=== PATIENT | male | born 1990 | race Caucasian/White ===

== ENCOUNTER 2016-12-30 17:47 | Emergency (ER) | payer OTHER ==
[2016-12-30] MEDS ORDERED: CYCLOBENZAPRINE 10 MG TABLET PO STA (18:25)
[2016-12-30] MEDS ORDERED: HYDROcod/ACET 5/325 Prepack 6 PO STA (18:25)
[2016-12-30] MEDS ORDERED: HYDROcod/ACET 5/325 Prepack 6 PO ONE (18:27)
[2016-12-30] MEDS ORDERED: CYCLOBENZAPRINE 10 MG TABLET PO ONE (18:28)
== END 2016-12-30 18:37 | disposition home or self-care (01) ==
DX: S39.012A Strain of muscle, fascia and tendon of lower back, initial encounter (principal); X50.0XXA Overexertion from strenuous movement or load, initial encounter; F17.200 Nicotine dependence, unspecified, uncomplicated; R03.0 Elevated blood-pressure reading, without diagnosis of hypertension
CPT/HCPCS: 99283; A9270

== ENCOUNTER 2017-04-25 09:15 | Emergency (ER) | payer OTHER ==
[2017-04-25 09:35] LABS: BILIRUBIN,URINE NEGATIVE (NEGATIVE); PH,URINE 5.5 PH (5.0-7.5)
[2017-04-25 09:36] LABS: UA CHARGE (STRIP ONLY) YES; UR CULTURE IF IND NOT INDICATED
--- NOTE | 2017-04-25 09:45 | ED Physician Documentation ---
PD HPI ABD PAIN - Stated complaint Stated Complaint: SIDE PX - Chief complaint Chief Complaint: Abd Pain - History obtained from History obtained from: Patient - History of Present Illness Timing - onset: How many days ago (2) Timing - duration: Days (2) Timing - details: Gradual onset, Still present Quality: Sharp, Pain Location: LLQ Radiation: Left flank Improved by: Laying still Worsened by: Moving, Position, Palpation, Other (urination.) Associated symptoms: No: Fever, Nausea, Vomiting, Hematemesis, Diarrhea, Constipation Similar symptoms before: Diagnosis (UTI) Recently seen: Not recently seen - Additional information Additional information: 27 y/o male previously well has developed left sided abdominal pain about 3 days ago and this is slowly progressing and worse today. He feels some pain while urinating in the Left side and this resolves. He has pain with movement and palpation and the pain does not resolve with rest. He has not had diarrhea or constipation. He did do some work with moving prior to onset of symptoms. Review of Systems Constitutional: reports: Fatigue. denies: Fever, Chills Eyes: denies: Decreased vision Ears: denies: Ear pain Nose: denies: Congestion Throat: denies: Sore throat Cardiac: denies: Chest pain / pressure, Palpitations Respiratory: denies: Dyspnea, Cough GI: reports: Abdominal Pain. denies: Nausea, Vomiting, Constipation, Diarrhea, Hematemesis : reports: Dysuria. denies: Frequency Skin: denies: Rash, Lesions Musculoskeletal: denies: Neck pain, Back pain, Extremity pain Neurologic: denies: Generalized weakness, Focal weakness, Numbness PD PAST MEDICAL HISTORY - Past Surgical History Past Surgical History: No General: Appendectomy - Present Medications Home Medications: Ambulatory Orders Medication Instructions Recorded Confirmed Ciprofloxacin HCl [Cipro] 500 mg PO BID #14 tablet 04/25/17 HYDROcod/ACETAM 5/325 [Toxey 5/325] 1 - 2 ea PO Q6H PRN #15 tablet 04/25/17 Metronidazole [Flagyl] 500 mg PO BID #14 tablet 04/25/17 - Allergies Allergies/Adverse Reactions: Allergies Allergy/AdvReac Type Severity Reaction Status Date / Time No Known Drug Allergies Allergy Verified 04/25/17 09:21 - Social History Does the pt smoke?: Yes Smoking Status: Current every day smoker Does the pt drink ETOH?: No Does the pt have substance abuse?: No - Immunizations Immunizations are current?: Yes PD ED PE NORMAL - Vitals Vital signs reviewed: Yes (hypertensive ) - General General: Alert and oriented X 3, No acute distress, Well developed/nourished - HEENT HEENT: Atraumatic, PERRL, EOMI - Neck Neck: Supple, no meningeal sign, No bony TTP - Cardiac Cardiac: RRR, No murmur - Respiratory Respiratory: No respiratory distress, Clear bilaterally - Abdomen Abdomen: Soft, Other (There is left lower quadrant tenderness to palpation that extinquishes with time and this is not reproduced by the strain of sitting up. The pain is reproduced with repeat exam and there is no referred tenderness. ) - Back Back: No CVA TTP, No spinal TTP - Derm Derm: Normal color, Warm and dry, No rash - Extremities Extremities: No deformity, No edema - Neuro Neuro: Alert and oriented X 3, No motor deficit, No sensory deficit, Normal speech - Psych Psych: Normal mood, Normal affect Results - Vitals Vitals: Vital Signs - 24 hr 04/25/17 04/25/17 09:19 11:01 Temperature 36.6 C Heart Rate 75 71 Respiratory 18 18 Rate Blood Pressure 157/94 H 132/82 H O2 Saturation 100 95 Oxygen O2 Source Room air - Labs Labs: Laboratory Tests 04/25/17 04/25/17 04/25/17 09:20 09:51 09:51 WBC 8.6 RBC 4.84 Hgb 15.0 Hct 44.2 MCV 91.2 MCH 31.0 MCHC 34.0 RDW 12.6 Plt Count 235 MPV 7.7 Neut # 4.9 Lymph # 2.7 Ward # 0.8 Eos # 0.2 Baso # 0.0 Absolute Nucleated RBC 0.00 Nucleated RBCs 0.0 Sodium 139 Potassium 4.1 Chloride 108 Carbon Dioxide 22 Anion Gap 9.0 BUN 15 Creatinine 1.1 Estimated GFR (MDRD) 79 L Glucose 108 H Calcium 9.3 Total Bilirubin 0.5 AST 50 H ALT 94 H Alkaline Phosphatase 77 Total Protein 8.2 Albumin 4.5 Globulin 3.7 Albumin/Globulin Ratio 1.2 Lipase 34 Urine Color YELLOW Urine Clarity CLEAR Urine pH 5.5 Ur Specific [place] >=1.030 H Urine Protein NEGATIVE Urine Glucose (UA) NEGATIVE Urine Ketones NEGATIVE Urine Occult Blood NEGATIVE Urine Nitrite NEGATIVE Urine Bilirubin NEGATIVE Urine Urobilinogen 0.2 (NORMAL) Ur Leukocyte Esterase NEGATIVE Ur Microscopic Review NOT INDICATED Urine Culture Comments NOT INDICATED - Rads (name of study) CT ab/pel with Radiology: Prelim report reviewed (Impression: Mild diverticulosis with acute diverticulitis.), EMP read indepedently, See rad report PD MEDICAL DECISION MAKING - ED course Complexity details: reviewed old records, reviewed results, re-evaluated patient , considered differential, d/w patient, d/w family ED course: 27-year-old male with left-sided abdominal pain appears to have tenderness on examination and CT exam shows diverticulitisFlagyl and Cipro and he will have the next several days off from work. Departure - Departure Disposition: Home, Self Care Clinical Impression: Diverticulitis Qualifiers: Diverticulitis site: large intestine Diverticulitis bleeding: without bleeding Diverticulitis complication: without perforation or abscess Qualified Code(s): K57.32 - Diverticulitis of large intestine without perforation or abscess without bleeding Condition: Stable Instructions: ED Diverticulitis Follow-Up: SHAKIR SINGH [Primary Care Provider] - Prescriptions: Ciprofloxacin HCl [Cipro] 500 mg PO BID #14 tablet Metronidazole [Flagyl] 500 mg PO BID #14 tablet HYDROcod/ACETAM 5/325 [Toxey 5/325] 1 - 2 ea PO Q6H PRN #15 tablet PRN Reason: Pain Comments: Today in the Emergency Department your blood pressure was elevated. This can happen from the stress of the visit itself, from a current illness or circumstance or from uncontrolled hypertension. If you take blood pressure medications take your usual mediations, have your blood pressure re-checked in an appropriate setting and follow up any elevation with your primary care doctor.
[2017-04-25 10:03] LABS: BASOPHILS % (AUTO) 0.5 %; EOSINOPHILS # (AUTO) 0.2 10^3/uL (0.0-0.7); EOSINOPHILS % (AUTO) 2.5 %; HCT - HEMATOCRIT 44.2 % (42.0-52.0); LYMPHOCYTES # (AUTO) 2.7 10^3/uL (1.5-3.5); LYMPHOCYTES % (AUTO) 31.7 %; MEAN CORPUSCULAR VOLUME 91.2 fL (80.0-94.0); MEAN PLATELET VOLUME 7.7 fL (7.4-11.4); MONOCYTES # (AUTO) 0.8 10^3/uL (0.0-1.0); MONOCYTES % (AUTO) 8.8 %; NEUTROPHILS # (AUTO) 4.9 10^3/uL (1.5-6.6); NEUTROPHILS % (AUTO) 56.5 %; RED BLOOD COUNT 4.84 10^6/uL (4.70-6.10); RED CELL DISTRIBUTION WIDTH 12.6 % (12.0-15.0); UNCORRECTED WHITE BLOOD COUNT 8.6 x10^3/uL; WHITE BLOOD COUNT 8.6 x10^3/uL (4.8-10.8)
[2017-04-25 10:23] LABS: ALBUMIN/GLOBULIN RATIO 1.2 (1.0-2.2); BILIRUBIN,TOTAL 0.5 mg/dL (0.2-1.0); CALCIUM 9.3 mg/dL (8.5-10.3); CREATININE 1.1 mg/dL (0.6-1.2); POTASSIUM 4.1 mmol/L (3.5-5.0); TOTAL PROTEIN 8.2 g/dL (6.7-8.2)
[2017-04-25] MEDS ORDERED: IOPAMIDOL-300 100 ML VIAL IVP ONE (10:47)
[2017-04-25 11:02] VITALS: BP 132/82
--- NOTE | 2017-04-25 11:41 | CT Preliminary Report ---
Exam: CT Abdomen/Pelvis W/ IMPRESSION: Mild diverticulosis with acute diverticulitis. [facility] SITE ID: [id number]
--- NOTE | 2017-04-25 11:43 | CT Report ---
EXAM: CT ABDOMEN AND PELVIS EXAM DATE: 04/25/2017 10:50 AM. CLINICAL HISTORY: LLQ pain . COMPARISONS: 06/25/2016. TECHNIQUE: Routine helical CT imaging was performed through the abdomen and pelvis. IV contrast: 100 cc Isovue-300. Enteric contrast: No. Reconstructions: Coronal and sagittal. In accordance with CT protocol optimization, one or more of the following dose reduction techniques w ere utilized for this exam: automated exposure control, adjustment of mA and/or KV based on patient s ize, or use of iterative reconstructive technique. FINDINGS: Lung Bases: Small focus of atelectasis in left outer sulcus. Otherwise unremarkable. No effusion. Liver: Normal. No masses. Gallbladder/Bile Ducts: Unremarkable. Spleen: Normal. Pancreas: Normal. Adrenal Glands: Normal. Kidneys: Normal. No masses or hydronephrosis. Peritoneal Cavity/Bowel: Minimal colonic diverticulosis with localized hazy infiltration of fat adjac ent to the descending sigmoid junction representing acute diverticulitis. No fluid collection or absc ess formation at this time. Bowel loops otherwise unremarkable. Appendix surgically absent. No free f luid, free air, or lymphadenopathy. Pelvic Organs: Normal. The bladder and visualized pelvic organs are within normal limits. Vasculature: No aneurysms or other significant abnormality. Bones: No significant abnormality. Other: None. IMPRESSION: Mild diverticulosis with acute diverticulitis. [facility] Referring Provider Line: [phone] SITE ID: [id number]
== END 2017-04-25 11:57 | disposition home or self-care (01) ==
LOC: ED 09:15
DX: K57.32 Diverticulitis of large intestine without perforation or abscess without bleeding (principal); R03.0 Elevated blood-pressure reading, without diagnosis of hypertension; F17.200 Nicotine dependence, unspecified, uncomplicated
CPT/HCPCS: 36415; 74177; 80053; 81003; 83690; 85025; 99283; 99284; Q9967; 81001; 87086

== ENCOUNTER 2017-07-23 15:24 | Emergency (ER) | payer OTHER ==
[2017-07-23 15:47] VITALS: BP 133/86
[2017-07-23] MEDS ORDERED: DEXAMETHASONE 10 MG/ML VIAL PO STA (16:50)
--- NOTE | 2017-07-23 16:53 | ED Physician Documentation ---
PD HPI HEENT - Stated complaint Stated Complaint: LT EAR PX - Chief complaint Chief Complaint: Heent - History obtained from History obtained from: Patient - History of Present Illness Timing - onset: Last night Timing - duration: Days (1) Timing - details: Gradual onset, Still present Location: Left ear Improves: Medication Associated symptoms: Congestion, Rhinorrhea, Cough Similar symptoms before: Diagnosis (OM) Recently seen: Not recently seen - Additional information Additional information: 27-year-old male with a prior history of otitis as developed pain in his left ear that peaked last night it did drain some yellow and green. He is now has less pain but continued pain in the left ear. He has some mild cough and mild congestion. Review of Systems Constitutional: denies: Fever, Chills Eyes: denies: Decreased vision Ears: reports: Ear pain, Drainage/discharge Nose: reports: Congestion Throat: denies: Sore throat Cardiac: denies: Chest pain / pressure, Palpitations Respiratory: reports: Cough. denies: Dyspnea GI: denies: Abdominal Pain, Nausea, Vomiting : denies: Dysuria PD PAST MEDICAL HISTORY - Past Medical History Past Medical History: No - Past Surgical History Past Surgical History: Yes General: Appendectomy HEENT: Myringotomy (tubes) - Present Medications Home Medications: Ambulatory Orders Medication Instructions Recorded Confirmed Azithromycin [Zithromax] 250 mg PO DAILY #6 tablet 07/23/17 - Allergies Allergies/Adverse Reactions: Allergies Allergy/AdvReac Type Severity Reaction Status Date / Time No Known Drug Allergies Allergy Verified 07/23/17 15:47 - Social History Does the pt smoke?: Yes Smoking Status: Current every day smoker Does the pt drink ETOH?: No Does the pt have substance abuse?: No - Immunizations Immunizations are current?: Yes - POLST Patient has POLST: No PD ED PE NORMAL - Vitals Vital signs reviewed: Yes (hypertensive ) - General General: No acute distress, Well developed/nourished - HEENT HEENT: Atraumatic, PERRL, EOMI, Pharynx benign (With evidence of prior uvuloplasty.), Other (The left TM is markedly erythematous with complete loss of landmarks and evidence of recent drainage. I am unable to make out the whole specifically in the eardrum as there is some cerumen and debris present.The right ear is clear.) - Neck Neck: Supple, no meningeal sign, No bony TTP - Cardiac Cardiac: RRR, No murmur - Respiratory Respiratory: No respiratory distress, Clear bilaterally - Derm Derm: Normal color, Warm and dry, No rash - Extremities Extremities: No deformity, No edema - Neuro Neuro: No motor deficit, No sensory deficit - Psych Psych: Normal mood, Normal affect Results - Vitals Vitals: Vital Signs - 24 hr 07/23/17 15:43 Temperature 36.9 C Heart Rate 85 Respiratory 16 Rate Blood Pressure 133/86 H O2 Saturation 98 Oxygen O2 Source Room air PD MEDICAL DECISION MAKING - ED course Complexity details: considered differential, d/w patient ED course: 27-year-old male with left otitis media with rupture of the TM is given dexamethasone 10 mg orally and we will place him on some azithromycin. Departure - Departure Disposition: Home, Self Care Clinical Impression: Otitis media Qualifiers: Otitis media type: suppurative Chronicity: acute Laterality: left Recurrence: recurrent Spontaneous tympanic membrane rupture: with spontaneous rupture Qualified Code(s): H66.015 - Acute suppurative otitis media with spontaneous rupture of ear drum, recurrent, left ear Condition: Stable Instructions: ED Otitis Media Acute Adult Follow-Up: SHAKIR SINGH [Primary Care Provider] - Prescriptions: Azithromycin [Zithromax] 250 mg PO DAILY #6 tablet Comments: Today in the Emergency Department your blood pressure was elevated. This can happen from the stress of the visit itself, from a current illness or circumstance or from uncontrolled hypertension. If you take blood pressure medications take your usual mediations, have your blood pressure re-checked in an appropriate setting and follow up any elevation with your primary care doctor.
[2017-07-23] MEDS ORDERED: DEXAMETHASONE 10 MG/ML VIAL ONE (16:59)
== END 2017-07-23 16:59 | disposition home or self-care (01) ==
LOC: ED 15:24
DX: H66.015 Acute suppurative otitis media with spontaneous rupture of ear drum, recurrent, left ear (principal); R03.0 Elevated blood-pressure reading, without diagnosis of hypertension; F17.200 Nicotine dependence, unspecified, uncomplicated
CPT/HCPCS: 99283

== ENCOUNTER 2019-06-09 12:54 | Emergency (ER) | payer OTHER ==
[2019-06-09 13:00] VITALS: BP 148/100
[2019-06-09] MEDS ORDERED: BUFFERED LIDOCAINE 10 ML SYRINGE SUBQ STA (13:06)
--- NOTE | 2019-06-09 13:14 | ED Physician Documentation ---
History of Present Illness - Stated complaint Stated Complaint: TOE PAIN - Chief complaint Chief Complaint: Heent - History obtained from History obtained from: Patient - History of Present Illness Timing: Other (Several days of a painful left great ingrown toenail medially. No fevers or chills.) Review of Systems Constitutional: reports: Reviewed and negative Cardiac: reports: Reviewed and negative Respiratory: reports: Reviewed and negative PD PAST MEDICAL HISTORY - Past Surgical History Past Surgical History: Yes General: Appendectomy HEENT: Myringotomy (tubes) - Present Medications Home Medications: Ambulatory Orders Medication Instructions Recorded Confirmed Azithromycin [Zithromax] 250 mg PO DAILY #6 tablet 07/23/17 Cephalexin [Keflex] 500 mg PO Q6H #28 capsule 06/09/19 - Allergies Allergies/Adverse Reactions: Allergies Allergy/AdvReac Type Severity Reaction Status Date / Time No Known Drug Allergies Allergy Verified 07/23/17 15:47 - Social History Does the pt smoke?: Yes Smoking Status: Current every day smoker Does the pt drink ETOH?: No Does the pt have substance abuse?: No - Immunizations Immunizations are current?: Yes - POLST Patient has POLST: No PD ED PE NORMAL - Vitals Vital signs reviewed: Yes - General General: Alert and oriented X 3, No acute distress - Extremities Extremities: Other (The medial side of the left great toenail is ingrown and swollen with mild cellulitis and tenderness.) - Neuro Neuro: Alert and oriented X 3, Normal speech Results - Vitals Vitals: Vital Signs - 24 hr 06/09/19 12:57 Heart Rate 90 Respiratory 16 Rate Blood Pressure 148/100 H O2 Saturation 97 Oxygen O2 Source Room air Procedures - General procedure General procedure: Verbal informed consent the left big toe was anesthetized using a digital block with buffered lidocaine in standard fashion with excellent anesthesia. I used electrocautery to score the nail longitudinally on the medial side and then using blunt dissection the medial fifth of the nail was peeled off the nail bed and disposed of. There is minimal bleeding and a dressing was placed. Departure - Departure Disposition: 01 Home, Self Care Clinical Impression: Ingrown left greater toenail Condition: Good Record reviewed to determine appropriate education?: Yes Instructions: ED Ingrown Toenail Excised Prescriptions: Cephalexin [Keflex] 500 mg PO Q6H #28 capsule Comments: Follow-up with your physician as needed or if worsening, Your blood pressure was elevated today on check into the emergency department. This does not mean that you have hypertension, it is a common phenomenon to come to the emergency department and have elevated blood pressure. I recommend that you see your primary care physician within the week to have it rechecked when you are feeling better.
== END 2019-06-09 13:32 | disposition home or self-care (01) ==
LOC: ED 12:54
DX: L60.0 Ingrowing nail (principal); L03.032 Cellulitis of left toe; R03.0 Elevated blood-pressure reading, without diagnosis of hypertension; F17.200 Nicotine dependence, unspecified, uncomplicated
CPT/HCPCS: 11730